=== PATIENT | female | born 1940 ===

== ENCOUNTER 2019-02-17 06:05 | Day surgery (SDC) | payer OTHER ==
[~2019-02-17 06:05] MED LIST: RESTASIS1 EACH OP; TRAVATAN; [UNRECOGNIZED DRUG - OTHER] IM
== END 2019-02-17 18:00 | disposition home or self-care (01) ==
LOC: CIR.AMB 06:05
DX: C50.511 Malignant neoplasm of lower-outer quadrant of right female breast (principal); C50.212 Malignant neoplasm of upper-inner quadrant of left female breast
CPT/HCPCS: 19301; 38525; 38792; 78195; A9541